=== PATIENT | female | born 1960 | race Caucasian/White ===

== ENCOUNTER 2019-07-23 18:08 | Emergency (ER) | payer OTHER ==
[~2019-07-23] VITALS: Ht 157.5 cm; Wt 99.8 kg
[2019-07-23 18:10] VITALS: BP 163/97
[2019-07-23] MEDS ORDERED: ALPRAZOLAM1 MG PO (18:15)
[2019-07-23] MEDS ORDERED: NORCO 10-325 T1 EACH PO (18:15)
[2019-07-23] MEDS ORDERED: PENICILLIN V P500 MG PO (18:29)
== END 2019-07-23 19:05 | disposition home or self-care (01) ==
LOC: ER 18:08
DX: K04.7 Periapical abscess without sinus (principal); M41.9 Scoliosis, unspecified; Z87.891 Personal history of nicotine dependence

== ENCOUNTER 2021-02-18 17:48 | Emergency (ER) | payer MEDICARE ==
[~2021-02-18] VITALS: Ht 157.5 cm; Wt 104.3 kg
--- NOTE | ~2021-02-18 | EMS ---
[address] [address] EMS Patient Care Report Name: ELSY BEATTY Room #: DEP JESSICA Gill#: [id number] Admission: 02/18/21 Attend Phys: Discharge: 02/18/21 Date of : 58 Report #: [id number] THIS REPORT FOR: //name// Report Transmitted: 02/19/2021 06:17 EMS Care Summary [facility] MED-ACT Incident [id number] @ 02/18/2021 17:07 Incident Location [address] [place] [address] Patient ELSY BEATTY Female, 61 Years 1960 Patient Address [address] [place] [address] Patient History Other,Smoking,Scoliosis, Patient Allergies No known allergies, Patient Medications Alprazolam, Zoloft, Hydrocodone, Chief Complaint I can't take the pain anymore. Disposition Transported No Lights/[place] Reason Chest Pain (Non-Traumatic) Transported To [facility] Narrative Arrived to find a 61 yr old female patient lying partially on her couch in the care of E23 in no obvious acute distress complaining of back pain. Patient states she has a history of several back problems and normally takes 15 mg of Hydrocodone three times a day. Last night the patient states her roommate [address] [address] EMS Patient Care Report Name: ELSY BEATTY Room #: DEP [facility]#: [id number] Admission: 02/18/21 Attend Phys: Discharge: 02/18/21 Date of : 58 Report #: [id number] slammed the door into her injuring her back. Patient states she has having sharp pain going across her lower back on both sides, down her right leg (which she states is her sciatic nerve issue) and then up her back into her shoulders and from the middle of her back into her chest around where her xiphoid process is. Patient also states she had an episode of vomiting this morning. Additionally patient states she had the "chills" briefly in the morning. Patient states she summoned EMS because she can no longer take the pain. Patient states when she woke up this morning her pain was at a "7" on a 0 to 10 scale and now it is "off the charts." Patient states she last took her Hydrocodone around 1000 in the morning. A: See assessment tab. Physical exam and vital signs performed by E[facility]. Patient stood with our assistance and was able to take a couple of steps to the cot. Moved to unit. En route to [facility] of OP. Vital signs and ECG were monitored during transport. Shortly after beginning transport after the patient stated the pain was radiating into her chest and she has been hospitalized in the past for this we changed our destination to [place] because [facility] was on high volume and she might need to be hospitalized. 12-lead acquired. We contacted [facility] on the [employer] radio. Patient rested on the cot and had a difficult time getting comfortable during transport. Patient had no change to her condition during transport. Patient was alert with stable vital signs upon arrival at [place]. Patient was able to self transfer from the cot to the hospital bed. Report was given to an ED RN in room 10. Patient was transported to [place] because [facility] was on high volume. Initial Vitals @17:35P: 76,R: 16,BP: 118/71,Pain: 6/10,GCS: 15,SpO2: 94,Revised Trauma: 12,IA Suspected: false @17:43P: 70,R: 16,BP: 146/69,Pain: 0/10,GCS: 15,SpO2: 94,Revised Trauma: 12,IA Suspected: false @17:37P: 68,R: 16,Pain: 6/10,GCS: 15,SpO2: 94,IA Suspected: false @17:23P: 84,R: 16,BP: 176/115,Pain: 6/10,GCS: 15,Temp: 98F,SpO2: 93,Revised Trauma: 12,IA Suspected: false Impression Back Pain Procedures @17:3712-Lead ECGResponse: UnchangedSucceeded@17:20Surgical Mask on PatientResponse: Unchanged [facility] [address] [place] [address] EMS Patient Care Report Name: CHERYL BEATTYLMA GRAHAM Room #: DEP JESSICA Gill#: [id number] Admission: 02/18/21 Attend Phys: Discharge: 02/18/21 Date of : 58 Report #: [id number] Timeline 17:06,Call Received 17:06,Psap Call 17:07,Dispatched 17:07,En Route 17:14,On Scene 17:16,At Patient 17:20,Surgical Mask on Patient,Response: Unchanged 17:22,Depart Scene 17:23,BP: 176/115 M,PULSE: 84,RR: 16 R,SPO2: 93 Ox,ETCO2: ,BG: ,PAIN: 6,GCS: 15, 17:35,BP: 118/71 M,PULSE: 76,RR: 16 R,SPO2: 94 Ox,ETCO2: ,BG: ,PAIN: 6,GCS: 15, 17:37,12-Lead ECG,Response: UnchangedSucceeded, 17:37,BP: / M,PULSE: 68,RR: 16 R,SPO2: 94 Ox,ETCO2: ,BG: ,PAIN: 6,GCS: 15, 17:43,BP: 146/69 M,PULSE: 70,RR: 16 R,SPO2: 94 Ox,ETCO2: ,BG: ,PAIN: 0,GCS: 15, 17:43,At Destination 18:05,Call Closed Disclaimer v1.1 Copyright 2020 [employer] This EMS Care Summary contains data elements from the applicable legal record (which may be displayed differently). It is designed to provide pertinent information for the following purposes: continuity of care, clinical quality, and state data reporting. The complete legal record is available to ED staff and administrators of the receiving hospital in [employer] Patient Tracker. All data is provided "as is."
[~2021-02-18 17:48] MED LIST: ALPRAZOLAM1 MG PO; NORCO 10-325 T1 EACH PO; PENICILLIN V P500 MG PO
[2021-02-18 18:07] VITALS: BP 127/81
== END 2021-02-18 22:49 | disposition left against medical advice (07) ==
LOC: ER 17:48
DX: M54.9 Dorsalgia, unspecified (principal); G89.29 Other chronic pain; M54.2 Cervicalgia; Z79.899 Other long term (current) drug therapy; Z87.891 Personal history of nicotine dependence